=== PATIENT | female | born 1990 | race Caucasian/White ===

== ENCOUNTER 2021-05-08 17:23 | Emergency (ER) | payer SELFPAY ==
[~2021-05-08] VITALS: Ht 170.2 cm; Wt 59.0 kg
[2021-05-08 17:50] VITALS: BP 103/53
[2021-05-08] MEDS ORDERED: CEPHALEXIN MONOHYDRATE 500 MG CAPSULE PO ONE ×2 (18:18→18:30)
[2021-05-08] MEDS ORDERED: SULFAMETH/TRIMETH 800/160 MG 1 UDTAB TABLET ONE (18:19)
[2021-05-08] MEDS ORDERED: TDAP [DIPH/PERTUSSIS/TET] 0.5 ML VIAL IM ONE ×2 (18:19→18:30)
[2021-05-08] MEDS ORDERED: LIDOCAINE 1%-EPI 1:100,000 20 ML VIAL ONE (18:23)
[2021-05-08] MEDS ORDERED: LIDOCAINE 1%-EPI 1:100,000 20 ML VIAL TP ONE (18:30)
[2021-05-08] MEDS ORDERED: SULFAMETH/TRIMETH 800/160 MG 1 UDTAB TABLET PO ONE (18:30)
--- NOTE | 2021-05-08 18:35 | NUR ---
Patient became agitated and belligerent, threatening staff.
--- NOTE | 2021-05-08 18:47 | NUR ---
Patient does not wish to proceed with medical care recommended by SHARYN Álvarez. Patient given information related to possible complications, up to and including , which could occur as a result of leaving the hospital at this time. Patient verbalizes understanding of risks involved due to leaving against medical advice. Patient has signed AMA form.
== END 2021-05-08 18:50 | disposition left against medical advice (07) ==
LOC: ER 17:26
DX: L02.11 Cutaneous abscess of neck (principal); J45.909 Unspecified asthma, uncomplicated
CPT/HCPCS: 10060; 99283; A6403; A6407; J3490; 90715